=== PATIENT | female | born 1930 | race Caucasian/White ===

== ENCOUNTER 2017-11-16 06:34 | Day surgery (SDC) | payer MEDICARE, OTHER ==
[~2017-11-16] VITALS: Ht 154.9 cm; Wt 47.8 kg
[~2017-11-16 06:34] MED LIST: ALEN70TA3 PO; ASPI-496 PO; ASPI-515 PO; CITA20TA5 PO; CITA20TA9 PO; ENAL1TAB4 PO; ENAL5TAB PO; FAMO20TA7 PO; FLUTICASONE PROPIO NAS; METO10TA2 PO; PANT40TA5 PO; PARO20TA98 PO
[2017-11-16] MEDS ORDERED: EPINEPHRINE 1 MG/ML, 1ML ONE (06:47)
[2017-11-16] MEDS ORDERED: NEOSPORIN OINT, 15GM ONE (06:47)
[2017-11-16] MEDS ORDERED: BUPIVACAINE/PF 0.5% ONE (06:47)
[2017-11-16 07:28] VITALS: BP 189/94
[2017-11-16] MEDS ORDERED: LACTATED RINGERS 1,000 ML IV SCH (07:41)
[2017-11-16] MEDS ORDERED: FENTANYL PF 100 MCG/2ML ONE (07:43)
[2017-11-16] MEDS ORDERED: MIDAZOLAM 1 MG/ML, 2ML ONE (07:43)
[2017-11-16 08:08] LABS: BASOPHILS # (AUTO) 0.04 x10^3/uL (0-0.1); BASOPHILS % (AUTO) 0 % (0-1); EOSINOPHILS # (AUTO) 0.34 x10^3/uL (0-0.4); EOSINOPHILS % (AUTO) 4 % (1-7); LYMPHOCYTES # (AUTO) 2.45 x10^3/uL (1-3.4); LYMPHOCYTES % (AUTO) 27 % (22-44); MD NO; MEAN CORPUSCULAR HEMOGLOBIN 31.3 pg (27.0-34.8); MEAN CORPUSCULAR HGB CONC 33.7 g/dL (32.4-35.8); MEAN CORPUSCULAR VOLUME 92.7 fL (80-100); MEAN PLATELET VOLUME 7.8 fL (7.4-10.4); MONOCYTES # (AUTO) 1.03 x10^3/uL (0.2-0.8); MONOCYTES % (AUTO) 11 % (2-9); NEUTROPHILS # (AUTO) 5.33 x10^3/uL (1.8-6.8); NEUTROPHILS % (AUTO) 58 % (42-75); PLATELET COUNT 310 x10^3/uL (130-400); RED BLOOD COUNT 4.27 x10^6/uL (3.82-5.3); RED CELL DISTRIBUTION WIDTH 13.4 % (9.6-15.2)
[2017-11-16 08:19] LABS: ALANINE AMINOTRANSFERASE 18 U/L (12-78); ALBUMIN 4.2 g/dL (3.4-5.0); ANION GAP 8 mmol/L (5-15); CALCIUM 9.2 mg/dL (8.5-10.1); CHLORIDE 107 mmol/L (98-107)
[2017-11-16 08:21] LABS: ALKALINE PHOSPHATASE 68 U/L (45-117); BILIRUBIN,TOTAL 0.9 mg/dL (0.2-1.0); TOTAL PROTEIN 7.8 g/dL (6.4-8.2)
[2017-11-16] MEDS ORDERED: hydrALAzine 20 MG/ML, 1ML ONE (09:28)
[2017-11-16] MEDS ORDERED: HYDROcodone/APAP 7.5-325MG/15ML UDC ONE (09:43)
[2017-11-16] MEDS ORDERED: ALBUTEROL SULFATE 2.5 MG/3 ML NPPB PRN (10:00)
[2017-11-16] MEDS ORDERED: ONDANSETRON 2MG/ML, 2ML IVPush PRN (10:00)
[2017-11-16] MEDS ORDERED: FENTANYL PF 100 MCG/2ML IV PRN (10:00)
[2017-11-16] MEDS ORDERED: MIDAZOLAM 1 MG/ML, 2ML IV PRN (10:00)
[2017-11-16] MEDS ORDERED: MEPERIDINE/PF 25MG/0.5ML IVPush PRN (10:00)
[2017-11-16] MEDS ORDERED: PROMETHAZINE 12.5 MG SUPP PR PRN (10:00)
[2017-11-16] MEDS ORDERED: ACETAMINOPHEN 325 MG TABLET PO PRN (10:00)
[2017-11-16] MEDS ORDERED: hydrALAzine 20 MG/ML, 1ML IV PRN (10:00)
[2017-11-16] MEDS ORDERED: LABETALOL 5MG/ML, 20ML IV PRN (10:00)
[2017-11-16] MEDS ORDERED: HYDROcodone/APAP 7.5-325MG/15ML UDC PO PRN (10:00)
[2017-11-16] MEDS ORDERED: OXYcodone 5 MG/5 ML ORAL.SOL UDC PO PRN (10:00)
[2017-11-16] MEDS ORDERED: METOPROLOL 1 MG/ML, 5ML IV PRN (10:00)
[2017-11-16] MEDS ORDERED: HYDROmorphone 1 MG/ML, 1ML IV PRN (10:00)
[2017-11-16] MEDS ORDERED: EPHEDRINE 50 MG/ML, 1ML IVPush PRN (10:00)
[2017-11-16] MEDS ORDERED: PROMETHAZINE 25 MG/ML, 1ML IV PRN (10:00)
[2017-11-16] MEDS ORDERED: PROPOFOL 10 MG/ML, 20ML ONE (16:09)
[2017-11-16] MEDS ORDERED: CEFAZOLIN 1,000 MG ONE (16:09)
[2017-11-16] MEDS ORDERED: DEXAMETHASONE 4 MG/ML, 1ML ONE (16:09)
[2017-11-16] MEDS ORDERED: KETOROLAC 30 MG/1 ML ONE (16:09)
[2017-11-16] MEDS ORDERED: ONDANSETRON 2MG/ML, 2ML ONE (16:09)
== END 2017-11-16 12:30 ==
LOC: OUT 06:34
PROVIDERS: ATTEND Orthopaedic Surgery
DX: S52.032A Displaced fracture of olecranon process with intraarticular extension of left ulna, initial encounter for closed fracture (principal); Z88.8 Allergy status to other drugs, medicaments and biological substances; Z90.710 Acquired absence of both cervix and uterus; Z98.890 Other specified postprocedural states; X58.XXXA Exposure to other specified factors, initial encounter; Y93.89 Activity, other specified; Y92.89 Other specified places as the place of occurrence of the external cause; Y99.8 Other external cause status
CPT/HCPCS: 24685; 36415; 73070; 76000; 80053; 85025; 93005; C1713; C1776; J0171; J0360; J0690; J1100; J1885; J2250; J2405; J2704; J3010; J3490; J7120

== ENCOUNTER 2018-12-29 09:44 | Inpatient (IN) | payer MEDICARE, OTHER ==
[~2018-12-29] VITALS: Ht 157.5 cm; Wt 45.0 kg
[~2018-12-29 09:44] MED LIST changes: -CITA20TA5 PO; +CITA20TA6 PO
--- NOTE | 2018-12-29 10:11 | NUR ---
PT TO ROOM FROM LOBBY
--- NOTE | 2018-12-29 10:13 | NUR ---
EKG PERFORMED AND GIVEN TO DR. CHILDS.
--- NOTE | 2018-12-29 10:21 | NUR ---
88 Y/O FEMALE PRESENTS TO ED WITH C/O FATIGUE. PER SON "SHE HAS HAD A SINUS INFECTION AND TAKING ABX. SHE JUST STARTED FEELING REALLY SICK STILL. LIKE WEAKNESS AND NOT FEELING BETTER." NO ACUTE DISTRESS NOTED. PT ABLE TO STAND BEDSIDE TO SPEAK WITH EDMD. PT PLACED ON CONT PULSE OX,NIBP, [employer]. NO C/O N/V/D, TRAUMA, SYNCOPE, CP, SOB.
[2018-12-29] MEDS ORDERED: DILTIAZEM 125 MG in DEXTROSE 5% 100 ML IV SCH (10:27)
[2018-12-29] MEDS ORDERED: DILTIAZEM 5 MG/ML, 5ML IV ONE (10:30)
--- NOTE | 2018-12-29 10:32 | NUR ---
PIV ESTABLISHED PT TOLERATED WITH NO COMPLICATIONS
[2018-12-29 10:40] LABS: ALBUMIN 3.6 g/dL (3.4-5.0); ANION GAP 10 mmol/L (5-15); CHLORIDE 106 mmol/L (98-107); CREATININE 1.52 mg/dL (0.55-1.02); INTERNATIONAL NORMALIZED RATIO 1.01 (0.93-1.1); MEAN CORPUSCULAR HEMOGLOBIN 31.3 pg (27.0-34.8); MEAN CORPUSCULAR HGB CONC 34.1 g/dL (32.4-35.8); MEAN CORPUSCULAR VOLUME 91.5 fL (80-100); MEAN PLATELET VOLUME 8.2 fL (7.4-10.4); PLATELET COUNT 329 x10^3/uL (130-400); PROTHROMBIN TIME 10.6 Seconds (9.6-11.5); RED BLOOD COUNT 4.14 x10^6/uL (3.82-5.3)
[2018-12-29] MEDS ORDERED: DILTIAZEM 5 MG/ML, 10ML ONE (10:41)
--- NOTE | 2018-12-29 10:52 | NUR ---
PT HR 148-175. POST IV DILT, HR 97-120. NO ACUTE DISTRESS NOTED. PT A&OX4. PT TOLERATED WITH NO COMPLICATIONS
[2018-12-29 11:05] LABS: BASOPHILS # (AUTO) 0.02 x10^3/uL (0-0.1); BASOPHILS % (AUTO) 0 % (0-1); EOSINOPHILS # (AUTO) 0.09 x10^3/uL (0-0.4); EOSINOPHILS % (AUTO) 1 % (1-7); LYMPHOCYTES # (AUTO) 1.66 x10^3/uL (1-3.4); LYMPHOCYTES % (AUTO) 14 % (22-44); MD SCAN; MONOCYTES # (AUTO) 1.77 x10^3/uL (0.2-0.8); MONOCYTES % (AUTO) 15 % (2-9); NEUTROPHILS # (AUTO) 8.14 x10^3/uL (1.8-6.8); NEUTROPHILS % (AUTO) 70 % (42-75)
--- NOTE | 2018-12-29 11:20 | NUR ---
PT RESTING ON GURNEY. NO ACUTE DISTRESS NOTED. NO NEEEDS REQUESTED AT THIS TIME.
--- NOTE | 2018-12-29 11:51 | NUR ---
PT INTERMITTENTLY SLEEPING ON GURNEY. RESPS EQUAL AND UNLABORED. NO C/O PAIN. NO NEEDS REQUESTED AT THIS TIME
[2018-12-29] MEDS ORDERED: AMOX1TAB64 PO (11:57)
[2018-12-29] MEDS ORDERED: IRBE75TA10 PO (11:57)
--- NOTE | 2018-12-29 13:22 | NUR ---
PT RESTING ON GURNEY. NO ACUTE DISTRESS NOTED. PT VERBALIZED UNDERSTANDING REGARDING POC. NO NEEDS REQUESTED AT THIS TIME.
--- NOTE | 2018-12-29 14:00 | NUR ---
PT RESTING ON GURNEY. NO ACUTE DISTRESS NOTED. NO NEEDS REQUESTED AT THIS TIME. AWAITING ROOM ASSIGNMENT. SON AWARE OF PT POC.
--- NOTE | 2018-12-29 14:01 | NUR ---
LATE ENTRY FOR 1132: VERBAL ORDER TO INCREASE DILT DRIP FROM [facility]. DRIP INCREASED TO 13 mL/HR. PRIOR TO INCREASE, PT HR WAS 119-140S. AFTER INCREASE, PT HR 100-115s. NO ACUTE DISTRESS NOTED. VSS. PT TOLERATED INCREASE WITH NO COMPLICATIONS.
--- NOTE | 2018-12-29 14:08 | NUR ---
REPORT TO MELANIE JAMISON. ALL QUESTIONS ANSWERED.
--- NOTE | 2018-12-29 14:33 | NUR ---
PT BEING TRANSFERRED TO FLOOR. PT LEFT WITH ALL PERSONAL BELONGINGS. RECEIVING RN AWARE OF DILT DRIP STILL INFUSING AT 13mL/HR.
[2018-12-29 14:45] VITALS: BP 150/93
[2018-12-29] MEDS ORDERED: BISACODYL 10 MG SUPP PR PRN (18:30)
[2018-12-29] MEDS ORDERED: ACETAMINOPHEN 650 MG/20.3 ML UDC PO PRN (18:30)
[2018-12-29] MEDS: DILTIAZEM 125 MG in SODIUM CHLORIDE 0.9% 100 ML IV SCH ×2 (18:48→20:57)
[2018-12-29 19:10] LABS: CHOLESTEROL, TOTAL 172 mg/dL (140-239); TRIGLYCERIDES 108 mg/dL (50-200); VLDL CHOLESTEROL 22 mg/dL (0-25)
[2018-12-29 19:14] LABS: CHOL/HDL RATIO 3.7; FREE T4 (FREE THYROXINE) 1.31 ng/dL (0.76-1.46); HDL CHOL % 27 % (28-40); HDL CHOLESTEROL (DIRECT) 47 mg/dL (40-60); LDL CHOLESTEROL,CALCULATED 103 mg/dL (54-169); LDL/HDL RATIO 2.2 (0.5-3.0); TROPONIN I < 0.015 ng/mL (0.000-0.045)
[2018-12-29 19:39] VITALS: BP 124/71
[2018-12-29] MEDS: SODIUM CHLORIDE FLUSH 10ML SYR IVF SCH (20:59)
[2018-12-30] MEDS: HEPARIN 5,000 UNITS/ML, 1ML SQ SCH ×2 (00:29→10:03)
[2018-12-30] MEDS ORDERED: METOPROLOL TARTRATE 25 MG TABLET ONE (01:03)
[2018-12-30 01:22] VITALS: BP 157/65
[2018-12-30 05:44] LABS: ANION GAP 6 mmol/L (5-15); CALCIUM 8.8 mg/dL (8.5-10.1); CHLORIDE 108 mmol/L (98-107)
[2018-12-30] MEDS ORDERED: METOPROLOL TARTRATE 25 MG TABLET PO SCH ×2 (06:00→09:00)
[2018-12-30 06:44] VITALS: BP 136/73
[2018-12-30] MEDS ORDERED: CITALOPRAM 20 MG TABLET PO SCH (09:00)
[2018-12-30] MEDS ORDERED: IRBESARTAN 150 MG TABLET PO SCH (09:00)
[2018-12-30] MEDS ORDERED: ASPIRIN 81 MG TABLET EC PO SCH (09:00)
[2018-12-30] MEDS: SODIUM CHLORIDE FLUSH 10ML SYR IVF SCH (10:04)
[2018-12-30 13:29] VITALS: BP 121/55
[2018-12-30] MEDS ORDERED: METO25TA35 PO (16:11)
== END 2018-12-30 17:21 | disposition home or self-care (01) | DRG 309 ==
LOC: ED 12:21 → EDIP 12:22 → ED 12:33 → 5SO 14:40 → DCLOUNGE 12-30 17:05
PROVIDERS: ADMIT Internal Medicine; ATTEND Internal Medicine
DX: I48.0 Paroxysmal atrial fibrillation (principal); I13.0 Hypertensive heart and chronic kidney disease with heart failure and stage 1 through stage 4 chronic kidney disease, or unspecified chronic kidney disease; I48.91 Unspecified atrial fibrillation; I08.0 Rheumatic disorders of both mitral and aortic valves; I25.10 Atherosclerotic heart disease of native coronary artery without angina pectoris; I50.9 Heart failure, unspecified; J32.9 Chronic sinusitis, unspecified; K86.9 Disease of pancreas, unspecified; M81.0 Age-related osteoporosis without current pathological fracture; N18.3 Chronic kidney disease, stage 3 (moderate); Z79.01 Long term (current) use of anticoagulants; Z79.899 Other long term (current) drug therapy; Z85.07 Personal history of malignant neoplasm of pancreas; Z90.710 Acquired absence of both cervix and uterus; Z90.49 Acquired absence of other specified parts of digestive tract
CPT/HCPCS: 36415; 71045; 80048; 80061; 82040; 83880; 84439; 84443; 84484; 85025; 85610; 85730; 93005; 93306; 96374; G0378; J1644

== ENCOUNTER 2019-01-18 12:31 | Inpatient (IN) | payer MEDICARE, OTHER ==
[~2019-01-18] VITALS: Ht 157.5 cm; Wt 43.8 kg
[~2019-01-18 12:31] MED LIST changes: +AMOX1TAB64 PO; +IRBE75TA10 PO; +METO25TA35 PO
[2019-01-18] MEDS ORDERED: SODIUM CHLORIDE FLUSH 10ML SYR IVF ONE (13:00)
[2019-01-18] MEDS ORDERED: DILTIAZEM 5 MG/ML, 5ML IVPush ONE (13:00)
[2019-01-18] MEDS ORDERED: ASPIRIN 81 MG TABLET CHEW PO ONE (13:00)
[2019-01-18] MEDS ORDERED: ASPIRIN 81 MG TABLET CHEW ONE (13:01)
--- NOTE | 2019-01-18 13:10 | NUR ---
pt bib remsa after dtr called ems for altered mental status. dtr spoke with pt on the phone today and pt was slurring words and sounded "drunk." pt denies etoh or other drugs. upon arrival, pt a&ox1. per ems, pt lives alone in a well-kept home and is completely independant. per ems, pt was diagnosed with afib 2 weeks ago but has declined blood thinners. pt remains in afib rvr rate 130-170, all other vss on arrival, but pt's lips were blue. 2l nc placed preventatively. iv established en route and 500ml ns administered. after o2 and ns administration, pt became a&ox3. upon arrival, pt remains in afib rvr rate 130-170, on 2l nc o2 and is a&ox4. connected to monitors. edmd and edpa present for assessment. ekg complete. labs drawn. cxr complete. orders received for cardizem. request slip sent to pharmac. awaiting medication and resutls.
[2019-01-18] MEDS ORDERED: DILTIAZEM 125 MG in DEXTROSE 5% 100 ML IV SCH (13:24)
[2019-01-18 13:29] LABS: BASOPHILS # (AUTO) 0.04 x10^3/uL (0-0.1); BASOPHILS % (AUTO) 0 % (0-1); EOSINOPHILS # (AUTO) 0.25 x10^3/uL (0-0.4); EOSINOPHILS % (AUTO) 3 % (1-7); LYMPHOCYTES # (AUTO) 1.51 x10^3/uL (1-3.4); LYMPHOCYTES % (AUTO) 15 % (22-44); MD NO; MEAN CORPUSCULAR HEMOGLOBIN 30.3 pg (27.0-34.8); MEAN CORPUSCULAR HGB CONC 33.2 g/dL (32.4-35.8); MEAN CORPUSCULAR VOLUME 91.2 fL (80-100); MEAN PLATELET VOLUME 7.9 fL (7.4-10.4); MONOCYTES # (AUTO) 0.87 x10^3/uL (0.2-0.8); MONOCYTES % (AUTO) 9 % (2-9); NEUTROPHILS # (AUTO) 7.19 x10^3/uL (1.8-6.8); NEUTROPHILS % (AUTO) 73 % (42-75); PLATELET COUNT 353 x10^3/uL (130-400); RED BLOOD COUNT 4.32 x10^6/uL (3.82-5.3); RED CELL DISTRIBUTION WIDTH 12.7 % (9.6-15.2)
[2019-01-18] MEDS ORDERED: DILTIAZEM 5 MG/ML, 5ML IV ONE (13:30)
--- NOTE | 2019-01-18 13:38 | NUR ---
pt medicted per nov. 10mg cardizem administered. hr down to 70s-100s. all vss. pt resting in room with family at bedside. edpa updated. per edpa, wait until edmd reevaluated pt before redosing cardizem or starting drip. no needs expressed from pt. call light within reach. awaiting edmd reassessment.
[2019-01-18 13:40] LABS: INTERNATIONAL NORMALIZED RATIO 0.96 (0.93-1.1); PROTHROMBIN TIME 10.1 Seconds (9.6-11.5)
[2019-01-18 13:41] LABS: ALANINE AMINOTRANSFERASE 15 U/L (12-78); ALBUMIN 3.3 g/dL (3.4-5.0); ANION GAP 7 mmol/L (5-15); CALCIUM 8.5 mg/dL (8.5-10.1); CHLORIDE 107 mmol/L (98-107); CREATININE 1.39 mg/dL (0.55-1.02)
[2019-01-18 13:45] LABS: ALKALINE PHOSPHATASE 96 U/L (45-117); BILIRUBIN,TOTAL 0.4 mg/dL (0.2-1.0); TROPONIN I < 0.015 ng/mL (0.000-0.045)
[2019-01-18] MEDS ORDERED: CITA10TA4 PO (13:45)
--- NOTE | 2019-01-18 14:15 | NUR ---
pt resting in room with family at bedside. pt noted to be in sr at 60bpm at this time. all vss. edmd and edpa notified. verbal orders to hold cardizem drip. no needs at this time. plan to adm.
--- NOTE | 2019-01-18 14:37 | NUR ---
new orders received for ct head. awaitng ct and room assignment.
--- NOTE | 2019-01-18 14:50 | NUR ---
pt up self to rr with steady gait. pt remeains in sr hr 61bmp. o2 sat on ra 95. o2 removed. pt resting in room. awaiting room assignment. no needs requested. call light within reach.
[2019-01-18] MEDS ORDERED: ACETAMINOPHEN 325 MG TABLET PO PRN (16:00)
[2019-01-18 16:51] VITALS: BP 184/64
[2019-01-18 18:48] VITALS: BP 166/59
[2019-01-18] MEDS: METOPROLOL TARTRATE 25 MG TABLET PO SCH (20:36)
[2019-01-18] MEDS: HEPARIN 5,000 UNITS/ML, 1ML SQ SCH (20:37)
[2019-01-18] MEDS: ATORVASTATIN 40 MG TABLET PO SCH (20:40)
[2019-01-19] VITALS (9 sets, daily range): BP systolic 148–195; BP diastolic 60–81
[2019-01-19] MEDS: HEPARIN 5,000 UNITS/ML, 1ML SQ SCH ×2 (05:33→15:34)
[2019-01-19 05:35] LABS: BASOPHILS # (AUTO) 0.04 x10^3/uL (0-0.1); BASOPHILS % (AUTO) 1 % (0-1); EOSINOPHILS # (AUTO) 0.31 x10^3/uL (0-0.4); EOSINOPHILS % (AUTO) 4 % (1-7); LYMPHOCYTES # (AUTO) 2.22 x10^3/uL (1-3.4); LYMPHOCYTES % (AUTO) 30 % (22-44); MD NO; MEAN CORPUSCULAR HEMOGLOBIN 30.3 pg (27.0-34.8); MEAN CORPUSCULAR HGB CONC 33.3 g/dL (32.4-35.8); MEAN CORPUSCULAR VOLUME 91.1 fL (80-100); MEAN PLATELET VOLUME 7.8 fL (7.4-10.4); MONOCYTES # (AUTO) 0.77 x10^3/uL (0.2-0.8); MONOCYTES % (AUTO) 10 % (2-9); NEUTROPHILS % (AUTO) 55 % (42-75); PLATELET COUNT 320 x10^3/uL (130-400); RED BLOOD COUNT 4.13 x10^6/uL (3.82-5.3); RED CELL DISTRIBUTION WIDTH 12.8 % (9.6-15.2)
[2019-01-19 05:37] LABS: ANION GAP 5 mmol/L (5-15); CALCIUM 8.8 mg/dL (8.5-10.1); CHLORIDE 111 mmol/L (98-107); CHOLESTEROL, TOTAL 180 mg/dL (140-239); CREATININE 1.54 mg/dL (0.55-1.02)
[2019-01-19 05:46] LABS: HEMOGLOBIN A1C 5.2 % (4.2-6.3)
[2019-01-19 05:47] LABS: CHOL/HDL RATIO 4.3; HDL CHOL % 23 % (28-40); HDL CHOLESTEROL (DIRECT) 42 mg/dL (40-60); LDL CHOLESTEROL,CALCULATED 100 mg/dL (54-169); LDL/HDL RATIO 2.4 (0.5-3.0); TRIGLYCERIDES 189 mg/dL (50-200); VLDL CHOLESTEROL 38 mg/dL (0-25)
[2019-01-19] MEDS: METOPROLOL TARTRATE 25 MG TABLET PO SCH ×2 (07:42→20:25)
[2019-01-19] MEDS: ASPIRIN 81 MG TABLET EC PO SCH (07:42)
[2019-01-19] MEDS: hydrALAzine 20 MG/ML, 1ML IVPush PRN ×2 (16:06→21:15)
[2019-01-19] MEDS: APIXABAN 2.5 MG TABLET PO SCH (20:24)
[2019-01-19] MEDS: ATORVASTATIN 40 MG TABLET PO SCH (20:25)
[2019-01-20 00:07] VITALS: BP 194/67
[2019-01-20] MEDS ORDERED: ENALAPRILAT 1.25 MG/ML, 2ML IV PRN (00:30)
[2019-01-20] MEDS ORDERED: ONDANSETRON 2MG/ML, 2ML IVPush PRN (01:00)
[2019-01-20 02:53] VITALS: BP 138/69
[2019-01-20 07:25] VITALS: BP 117/63
[2019-01-20] MEDS ORDERED: IRBESARTAN 150 MG TABLET PO SCH (09:00)
[2019-01-20] MEDS: APIXABAN 2.5 MG TABLET PO SCH (09:29)
[2019-01-20] MEDS: METOPROLOL TARTRATE 25 MG TABLET PO SCH (09:30)
[2019-01-20] MEDS: ASPIRIN 81 MG TABLET EC PO SCH (09:30)
[2019-01-20 10:44] LABS: ANION GAP 6 mmol/L (5-15); CALCIUM 8.9 mg/dL (8.5-10.1); CHLORIDE 110 mmol/L (98-107)
[2019-01-20 10:47] LABS: CREATININE 1.35 mg/dL (0.55-1.02)
[2019-01-20 12:28] VITALS: BP 156/67
[2019-01-20] MEDS ORDERED: APIX2.5T PO (14:50)
== END 2019-01-20 16:21 | disposition home or self-care (01) | DRG 682 ==
LOC: ED 14:26 → 5SO 14:53 → DCLOUNGE 01-20 16:07
PROVIDERS: ADMIT Hospitalist; ATTEND Hospitalist
DX: N17.9 Acute kidney failure, unspecified (principal); G93.41 Metabolic encephalopathy; G45.9 Transient cerebral ischemic attack, unspecified; I48.0 Paroxysmal atrial fibrillation; Z88.5 Allergy status to narcotic agent; Z88.8 Allergy status to other drugs, medicaments and biological substances; I12.9 Hypertensive chronic kidney disease with stage 1 through stage 4 chronic kidney disease, or unspecified chronic kidney disease; I25.10 Atherosclerotic heart disease of native coronary artery without angina pectoris; M81.0 Age-related osteoporosis without current pathological fracture; N18.9 Chronic kidney disease, unspecified; Z66 Do not resuscitate; Z79.01 Long term (current) use of anticoagulants; Z79.82 Long term (current) use of aspirin; Z79.899 Other long term (current) drug therapy; Z85.07 Personal history of malignant neoplasm of pancreas; Z90.710 Acquired absence of both cervix and uterus; Z90.49 Acquired absence of other specified parts of digestive tract
CPT/HCPCS: 36415; 70450; 70551; 71045; 80048; 80053; 80061; 83036; 84443; 84484; 85025; 85610; 85730; 93005; 93308; 93880; 96374; G0378; J1644; 92523-GN; J0360

== ENCOUNTER → 2020-05-29 | Outpatient (CLI) | payer MEDICARE, OTHER ==
[~2020-05-29] MED LIST changes: +APIX2.5T PO; +CITA10TA4 PO; -ENAL5TAB PO; +ENAL5TAB10 PO; +HEPA50002 SQ; +HYDR-3237 PO; -IRBE75TA10 PO; +IRBE75TA6 PO; -PANT40TA5 PO; +PANT40TA6 PO
[2020-05-29 13:08] LABS: ALANINE AMINOTRANSFERASE 17 U/L (12-78); ALBUMIN 3.8 g/dL (3.4-5.0); ANION GAP 7 mmol/L (5-15); CALCIUM 9.7 mg/dL (8.5-10.1); CHLORIDE 108 mmol/L (98-107)
[2020-05-29 13:10] LABS: ALKALINE PHOSPHATASE 80 U/L (45-117); BILIRUBIN,TOTAL 0.6 mg/dL (0.2-1.0); CREATININE 1.31 mg/dL (0.55-1.02); TOTAL PROTEIN 7.5 g/dL (6.4-8.2)
== END | disposition home or self-care (01) ==
LOC: LAB 12:42
PROVIDERS: ATTEND Internal Medicine Cardiovascular Disease
DX: I48.0 Paroxysmal atrial fibrillation (principal); G45.9 Transient cerebral ischemic attack, unspecified; I10 Essential (primary) hypertension; R00.2 Palpitations
CPT/HCPCS: 36415; 80053

== ENCOUNTER 2020-12-13 20:52 | Emergency (ER) | payer MEDICARE, OTHER ==
[~2020-12-13] VITALS: Ht 154.9 cm; Wt 45.6 kg
[~2020-12-13 20:52] MED LIST changes: -ASPI-515 PO; +ASPI-963 PO
[2020-12-13 20:55] VITALS: BP 188/92
[2020-12-13] MEDS ORDERED: ACETAMINOPHEN 325 MG TABLET ONE (21:51)
[2020-12-13] MEDS ORDERED: ACETAMINOPHEN 325 MG TABLET PO ONE (22:00)
--- NOTE | 2020-12-13 22:10 | NUR ---
PATIENT UPDATED ON PLAN OF CARE. NO NOTED NEEDS AT THIS TIME. PATIENT DENIES ANY ADDITIONAL NEEDS. ICE PACK PLACED ON RIGHT WRIST. PATIENT TOLERATED WELL. WILL CONITNUE TO MONITOR.
== END 2020-12-13 23:42 | disposition home or self-care (01) ==
LOC: ED 21:22
DX: S52.501A Unspecified fracture of the lower end of right radius, initial encounter for closed fracture (principal); S52.611A Displaced fracture of right ulna styloid process, initial encounter for closed fracture; S50.311A Abrasion of right elbow, initial encounter; I10 Essential (primary) hypertension; Z79.82 Long term (current) use of aspirin; Z88.5 Allergy status to narcotic agent; W18.30XA Fall on same level, unspecified, initial encounter; Y93.89 Activity, other specified; Y92.009 Unspecified place in unspecified non-institutional (private) residence as the place of occurrence of the external cause; Y99.8 Other external cause status
CPT/HCPCS: 29125; 99284